=== PATIENT | male | born 2000 | race Caucasian/White ===

== ENCOUNTER 2020-11-15 19:42 | Emergency (ER) | payer OTHER ==
[~2020-11-15] VITALS: Ht 172.7 cm; Wt 74.0 kg
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
[2020-11-15 20:12] VITALS: BP 128/74
--- NOTE | 2020-11-15 20:12 | NUR ---
ADDING MACHINE SERVICER [id number] HARMONY USED TO ANSWER CLINICAL SCREEN AND OTHER PT QUESTIONS AND INFORMING PT ON PLAN OF CARE.
[2020-11-15] MEDS ORDERED: METHOCARBAMOL 750 MG TABLET ONE (20:18)
[2020-11-15] MEDS ORDERED: KETOROLAC 60 MG/2 ML ONE (20:18)
--- NOTE | 2020-11-15 20:22 | NUR ---
USED SUPPLY TECH [id number] BRANDT TO TALK TO PT ABOUT MEDICATION ADMINISTRATION AND WHY WE ARE GIVING THEM TO HIM.
[2020-11-15] MEDS ORDERED: KETOROLAC 30 MG/1 ML IM ONE (20:30)
[2020-11-15] MEDS ORDERED: METHOCARBAMOL 750 MG TABLET PO ONE (20:30)
== END 2020-11-15 20:52 | disposition home or self-care (01) ==
LOC: ED 20:30
DX: S33.5XXA Sprain of ligaments of lumbar spine, initial encounter (principal); V89.2XXA Person injured in unspecified motor-vehicle accident, traffic, initial encounter; Y93.89 Activity, other specified; Y92.410 Unspecified street and highway as the place of occurrence of the external cause; Y99.8 Other external cause status
CPT/HCPCS: 96372; 99283; J1885